=== PATIENT | male | born 1965 | race Caucasian/White ===

== ENCOUNTER → 2022-06-06 11:27 | Outpatient (BNVA) | payer MEDICARE, MEDICAID, SELFPAY | PROVIDERS: Family Provider Nurse Practitioner; PCP Physician Assistant Medical; Visit Provider Registered Nurse | DX: Z79.899 Other long term (current) drug therapy (principal) | CPT/HCPCS: 80053; 80061; 83036 ==

== ENCOUNTER → 2023-10-15 14:30 | Outpatient (BNVA) | payer MEDICARE, MEDICAID, OTHER, SELFPAY | PROVIDERS: PCP Nurse Practitioner Family; Visit Provider Psychiatry & Neurology Psychiatry | DX: Z79.899 Other long term (current) drug therapy (principal) | CPT/HCPCS: 80053; 80061; 83036; 84443; 85025 ==

== ENCOUNTER → 2024-01-24 11:53 | Outpatient (BNVA) | payer MEDICARE, MEDICAID, SELFPAY ==
[2023-11-21 13:00] VITALS: BP 131/88; BMI 32.4
== END ==
PROVIDERS: PCP Nurse Practitioner Family; Referring Provider Anesthesiology Pain Medicine; Visit Provider Orthopaedic Surgery
DX: M54.9 Dorsalgia, unspecified (principal); M48.062 Spinal stenosis, lumbar region with neurogenic claudication
CPT/HCPCS: 36415; 72072; 72110; 80053; 81001; 85025; 99204

== ENCOUNTER → 2024-02-06 10:17 | Outpatient (BNVA) | payer MEDICARE, MEDICAID, SELFPAY ==
[2023-11-21 13:00] VITALS: BP 131/88; BMI 32.4
== END ==
PROVIDERS: PCP Nurse Practitioner Family; Visit Provider Family Medicine
DX: Z01.818 Encounter for other preprocedural examination (principal)
CPT/HCPCS: 81003

== ENCOUNTER 2024-02-10 13:31 | Day surgery (SDC) | payer MEDICARE, MEDICAID, SELFPAY ==
[2023-11-21 13:00] VITALS: BP 131/88; BMI 32.4
[2024-02-10] VITALS (14 sets, daily range): BP systolic 147–194; BP diastolic 77–96; PULSE 58–72; RESP 12–19; TEMP 36.2–36.4; O2SAT 5–96; BMI 32.9
--- NOTE | 2024-02-10 | XR_ITS ---
WS: [id number] Thoracic spine, C-arm fluoroscopy views, 02/10/2024 Clinical Data: OR PICS Comparison: Thoracic spine, 01/24/2024 Findings: Dr. Pedro inserted epidural stimulator wires into the thoracic space. Impression: Insertion of epidural stimulator wires into thoracic space.
--- NOTE | 2024-02-10 14:04 | P.ANESASSM_ITS ---
Pre-Anesthetic Assessment Height/Weight: Height 1.65 m Weight 89.811 kg Temp Pulse Resp BP Pulse Ox O2 Del Method 97.3 F L 60 17 147/88 93 Room Air 02/10/24 13:54 02/10/24 13:54 02/10/24 13:54 02/10/24 13:54 02/10/24 13:54 02/10/24 13:55 Preop Diagnosis: Lumbar stenosis with neurogenic claudication Operation Date: 02/10/24 15:55 Proposed Procedures p Spinal Cord Stimulator paddle Placement(Not Applicable) - DO Breezy Gaviria anesthetic complications: None Was Beta Estefania taken within 24 hours: N/A Was Clonidine taken within 24 hours: N/A Last intake: Intake Last Liquid Date 02/09/24 Last Liquid Time 23:30 Last Solid Date 02/09/24 Last Solid Time 19:30 Social Tobacco (vapes - encouraged cessation of smoking) Exam alert, oriented x 3, clear to auscultation bilaterally and regular rate & rhythm Airway Mallampati: Class IV Dentition: other (no teeth) Comments: Comments: small mouth opening Pulmonary Chronic Obstructive Pulmonary Disease and Sleep Apnea Interstitial lung disease CV/HEM Coronary Artery Disease (3 stents 2009 - no reports of further CP, STEVENS, or syncope) Hx PE X 2 on eliquis, holding for 3 days GI Gastroesophageal Reflux Disease Metabolic Diabetes Mellitus and Hyperlipidemia Anesthetic Plan ASA status: 3 Anesthesia: General Risk of > 500 ml blood loss (7ml/kg in children): No Medications/Allergies Home Medications Medication Instructions Recorded Confirmed Last Taken Type albuterol sulfate 90 mcg/actuation 2 puff inhalation TID PRN 01/25/20 02/10/24 02/10/24 History aerosol inhaler (ProAir HFA) Shortness Of Breath apixaban 5 mg tablet (Eliquis) 5 mg PO BID 01/25/20 02/07/24 02/04/24 History aspirin 81 mg tablet,delayed 81 mg PO DAILY 01/25/20 02/07/24 02/04/24 History release atorvastatin 40 mg tablet 40 mg PO .bedtime 01/25/20 02/10/24 02/09/24 History cholecalciferol (vitamin D3) 75 1,000 unit PO DAILY 01/25/20 02/10/24 02/09/24 History mcg (3,000 unit) tablet omeprazole 40 mg capsule,delayed 40 mg PO BID 01/25/20 02/10/24 02/09/24 History release dapagliflozin propanediol 5 mg 5 mg PO QAM 09/27/22 02/10/24 02/09/24 History tablet (Farxiga) morphine 30 mg immediate release 30 mg PO BID PRN Pain 09/27/22 02/10/24 02/09/24 History tablet oxycodone-acetaminophen 10 mg-325 1 tab PO TID PRN Pain 09/27/22 02/10/24 02/09/24 History mg tablet (Percocet) naloxegol 12.5 mg tablet (Movantik) 12.5 mg PO QAM 01/14/24 02/10/24 02/09/24 History sennosides 8.6 mg capsule (senna) 8.6 mg PO BID 01/14/24 02/10/24 02/09/24 Hi story trazodone 100 mg tablet 100 mg PO .qhs #30 tabs 01/14/24 02/10/24 02/09/24 Rx polyethylene glycol 3350 17 gram 17 g PO DAILY PRN Constipation 02/06/24 02/07/24 Unknown History oral powder packet (Miralax) aripiprazole 15 mg tablet 15 mg PO DAILY 02/07/24 02/10/24 02/09/24 History bupropion HCl 300 mg 24 hr tablet, 300 mg PO DAILY 02/07/24 02/10/24 02/09/24 History extended release mirtazapine 30 mg tablet 30 mg PO BEDTIME 02/07/24 02/10/24 02/09/24 History oxcarbazepine 600 mg tablet 600 mg PO BID 02/07/24 02/10/24 02/09/24 History ropinirole 1 mg tablet 1 mg PO TID 02/07/24 02/10/24 02/09/24 History Allergies Allergy/AdvReac Type Severity Reaction Status Date / Time duloxetine [From Cymbalta] Allergy Severe psychotic Verified 02/10/24 13:44 episodes carisoprodol [From Soma] Allergy Unknown unk Verified 02/10/24 13:44 fluticasone Allergy Unknown unk Verified 02/10/24 13:44 [From Advair Diskus] salmeterol Allergy Unknown unk Verified 02/10/24 13:44 [From Advair Diskus] cefazolin [From Ancef] Allergy ALGY-Hives Verified 02/10/24 13:44 coconut Allergy Unknown Verified 02/10/24 13:44 [facility] [place] Anesthesia Medical History Generalized anxiety disorder Insomnia Psychiatric care Major depressive disorder, recurrent severe without psychotic features Social History Smoking and tobacco/nicotine status: former use of tobacco/nicotine Data Anesthesia Cardiac Studies: No Data to Display
[2024-02-10] MEDS: sodium chloride 0.9% 1,000 ML 30 ML IV (14:17)
--- NOTE | 2024-02-10 15:26 | W.PM.OPSUD ---
Surgery/Procedure H&P Update DATE OF PROCEDURE: February 10, 2024 DATE H&P PERFORMED: 02/06/24 H&P UPDATE INFORMATION: I have reviewed H&P completed within last 30 days, I have examined patient prior to procedure and No changes to prior documentation PREOP DIAGNOSIS: Lumbar stenosis with neurogenic claudication PLANNED PROCEDURE: Operation Date: 02/10/24 15:55 Proposed Procedures p Spinal Cord Stimulator paddle Placement(Not Applicable) - Boston Pedro DO
[2024-02-10] MEDS: clindamycin 600 MG/50 ML PREMIX 100 MG IV (16:21)
[2024-02-10] MEDS: lidocaine-epi 1% 20 mL INJ INJECTION (16:46)
--- NOTE | 2024-02-10 17:34 | PM.OP ---
Operative Report Date of procedure: February 10, 2024 Pre-op diagnosis: Lumbar stenosis with neurogenic claudication Post-op diagnosis: same Procedure done: 1. Neurostimulator paddle placement 2. Neurostimulator generator battery pack placement Surgeon: Boston Pedro DO Estimated blood loss (mL): 20 Procedure: 1. Neurostimulator paddle placement 2. Neurostimulator generator battery pack placement Patient brought to the operative suite after undergoing anesthesia placed in the prone position. All areas impingement well-padded. Patient's prepped draped also fashion. Skin incision made over the T9-10 level. Subperiosteal dissection was made of the TPs of T9 and T10. Retractors were placed. Levels confirmed under C-arm. Laminectomies performed at the T9 level using high-speed bur the lamina was taken down partially and then the Kerrison rongeur was used to take down part of the lamina after was thinned out. Then ligamentum flavum was taken down in order to allow for placement the paddle. The hockey-stick trial was inserted. Passed freely. And then the paddle was placed to the top of T7. This is confirmed on AP and lateral fluoroscopy. The wires were sutured into the spinous process of T10. Next tension was brought to the battery pack. The skin incision made over the right flank. A pocket was made for the battery to go into. Wires were tunneled and passed from the thoracic spine down into the battery pocket. Wires were then passed into the correct sockets of the battery. All 4 wires were placed and confirmed to be in good position. The neurostimulator battery was then placed on top of the wires inside of the pouch. And then wounds were irrigated and closed in layered fashion with Vicryl and Monocryl suture. Sterile dressings were applied patient was transferred to the PACU in stable condition.
[2024-02-10] MEDS: fentaNYL 50 mcg/mL INJ 2mL IVP (18:25)
--- NOTE | 2024-02-10 18:43 | P.PCN_ITS ---
PACU note Narrative: VSS, Good respiratory effort, report to CE[employer] P[employer] CUTTER Exam: awake
--- NOTE | 2024-02-10 18:43 | PM.PACU ---
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
== END 2024-02-10 19:12 | disposition home or self-care (01) ==
PROVIDERS: PCP Nurse Practitioner Family; Visit Provider Orthopaedic Surgery
PROC: (CPT 63685; principal; 2024-02-10 15:45)
DX: M48.062 Spinal stenosis, lumbar region with neurogenic claudication (principal); F17.200 Nicotine dependence, unspecified, uncomplicated; J44.9 Chronic obstructive pulmonary disease, unspecified; G47.30 Sleep apnea, unspecified; I25.10 Atherosclerotic heart disease of native coronary artery without angina pectoris; Z95.5 Presence of coronary angioplasty implant and graft; Z86.711 Personal history of pulmonary embolism; K21.9 Gastro-esophageal reflux disease without esophagitis; E11.9 Type 2 diabetes mellitus without complications; E78.5 Hyperlipidemia, unspecified; Z79.82 Long term (current) use of aspirin; F41.1 Generalized anxiety disorder
CPT/HCPCS: 63655; 63685; 72070; 76000; C1778; C1820; J1100; J1170; J2405; J2704; J3010; J3490; J7030

== ENCOUNTER → 2024-02-25 08:39 | Outpatient (BNVA) | payer MEDICARE, MEDICAID, SELFPAY ==
[2023-11-21 13:00] VITALS: BP 131/88; BMI 32.4
== END ==
PROVIDERS: PCP Nurse Practitioner Family; Visit Provider Orthopaedic Surgery
DX: Z48.89 Encounter for other specified surgical aftercare (principal)
CPT/HCPCS: 99024

== ENCOUNTER → 2024-04-02 14:48 | Outpatient (BNVA) | payer MEDICARE, MEDICAID, SELFPAY ==
[2023-11-21 13:00] VITALS: BP 131/88; BMI 32.4
== END ==
PROVIDERS: PCP Nurse Practitioner Family; Visit Provider Orthopaedic Surgery
DX: M48.062 Spinal stenosis, lumbar region with neurogenic claudication (principal); Z48.89 Encounter for other specified surgical aftercare; M54.9 Dorsalgia, unspecified; Z96.82 Presence of neurostimulator
CPT/HCPCS: 72070; 72100; 99024